=== PATIENT | male | born 1980 | race Caucasian/White ===

== ENCOUNTER 2021-06-11 16:36 | Inpatient (IN) | payer OTHER ==
[~2021-06-11] VITALS: Ht 180.3 cm; Wt 81.9 kg
[2021-06-11 18:02] LABS: HEMOGLOBIN 16.1 gm/dl (14.0-17.5); RED BLOOD COUNT 5.01 M/UL (4.20-5.50); WHITE BLOOD COUNT 10.7 K/UL (4.5-11.0)
[2021-06-11 18:12] LABS: BUN/CREATININE RATIO 12 (0-10)
[2021-06-12 11:41] LABS: BUN/CREATININE RATIO 8 (0-10)
--- NOTE | 2021-06-13 01:27 | NUR ---
06/12/2021 @ 20:40 - Patient transferred from [facility] to [facility] at this time.
[2021-06-13 08:14] LABS: HIV SCREEN 4TH GENERATION WRFX Non Reactive (Non Reactive)
[2021-06-13 16:15] LABS: TREPONEMA PALLIDUM ANTIBODIES Non Reactive (Non Reactive)
[2021-06-14 00:09] LABS: CHLAMYDIA TRACHOMATIS, NAA Negative (Negative); NEISSERIA GONORRHOEAE, NAA Negative (Negative)
[2021-06-14 06:27] LABS: BUN/CREATININE RATIO 6 (0-10)
[2021-06-14 07:11] LABS: HBSAG SCREEN Positive (Negative); HEP A AB, IGM Negative (Negative); HEP B CORE AB, IGM Negative (Negative); HEP C VIRUS AB >11.0 (0.0-0.9)
[2021-06-17 07:47] LABS: RED BLOOD COUNT 4.43 M/UL (4.20-5.50); WHITE BLOOD COUNT 5.4 K/UL (4.5-11.0)
[2021-06-17 07:49] LABS: HEMOGLOBIN 13.4 gm/dl (14.0-17.5)
[2021-06-17 08:08] LABS: BUN/CREATININE RATIO 12 (0-10)
[2021-06-17] MEDS ORDERED: NICOTINE PATCH1 EAC2 TOP (10:41)
[2021-06-17] MEDS ORDERED: PEPCID40 MG PO (10:41)
[2021-06-17] MEDS ORDERED: LEVOFLOXACIN750 MG PO (10:41)
[2021-06-17] MEDS ORDERED: PERCOCET 7.5-31 EACH PO (10:41)
[2021-06-17] MEDS ORDERED: ZYVOX600 MG PO (10:41)
[2021-06-17] MEDS ORDERED: CLINDAMYCIN HC300 MG PO (10:41)
[2021-06-17] MEDS ORDERED: ASPIRIN EC325 MG PO (10:41)
[2021-06-18 05:20] LABS: BUN/CREATININE RATIO 16 (0-10)
--- NOTE | 2021-06-18 19:56 | NUR ---
06/18/211954 DR FERNÁNDEZ CALLED FOR WOUND CARE ORDERS, IODINE SOAKED GAUZE BID KEEP SPLINT ON
--- NOTE | 2021-06-18 20:08 | NUR ---
06/18/211914 PULLED IV OUT AND AMBULATED DOWN TO SMOKE, HAD CALLED FOR A RIDE. TOLD [employer] CODER THAT HE WOULD BE BACK UP HERE TO SIGN HIS DISCHARGE PAPERS
== END 2021-06-18 21:00 | disposition home or self-care (01) | DRG 464 ==
LOC: ER1 16:36 → PROG CARE 21:48 → MED SURG 4 21:48 → CDU 21:48 → PROG CARE 06-12 01:09 → MED SURG 4 06-12 20:58
PROVIDERS: Internal Medicine Infectious Disease; Nurse Practitioner; Podiatrist Foot & Ankle Surgery; ADMIT Internal Medicine
PROC: 0HXKXZZ Transfer Right Lower Leg Skin, External Approach (ICD-10-PCS; 2021-06-14)
PROC: 0JBQ0ZZ Excision of Right Foot Subcutaneous Tissue and Fascia, Open Approach (ICD-10-PCS; principal; 2021-06-14 10:45)
DX: M65.171 Other infective (teno)synovitis, right ankle and foot (principal); E87.1 Hypo-osmolality and hyponatremia; B19.10 Unspecified viral hepatitis B without hepatic coma; L03.115 Cellulitis of right lower limb; E87.2 Acidosis; Z20.822 Contact with and (suspected) exposure to COVID-19; B96.20 Unspecified Escherichia coli [E. coli] as the cause of diseases classified elsewhere; B95.61 Methicillin susceptible Staphylococcus aureus infection as the cause of diseases classified elsewhere; F19.10 Other psychoactive substance abuse, uncomplicated; F17.210 Nicotine dependence, cigarettes, uncomplicated; B95.4 Other streptococcus as the cause of diseases classified elsewhere; F15.10 Other stimulant abuse, uncomplicated; K21.9 Gastro-esophageal reflux disease without esophagitis; B19.20 Unspecified viral hepatitis C without hepatic coma; L08.89 Other specified local infections of the skin and subcutaneous tissue; Z79.82 Long term (current) use of aspirin; Z79.01 Long term (current) use of anticoagulants; Z88.2 Allergy status to sulfonamides
CPT/HCPCS: 36415; 73610; 73630; 73720; 80048; 80053; 80074; 80202; 80307; 82550; 82553; 83605; 83874; 84484; 85025; 85652; 86140; 86317; 86704; 86706; 86708; 86780; 86803; 87040; 87070; 87077; 87186; 87205; 87340; 87389; 96374; 99285; A9577; G0378; J0295; J0696; J1100; J1650; J1885; J2250; J2270; J2405; J2543; J2704; J2795; J3010; J3370; J7070; J7120; U0002